=== PATIENT | male | born 1985 | race Caucasian/White ===

== ENCOUNTER 2024-02-08 22:25 | Emergency (ER) | payer SELFPAY ==
[2024-02-08 22:31] VITALS: BP 161/104; PULSE 88; TEMP 37.3; O2SAT 97; BMI 37.9
--- NOTE | 2024-02-08 22:39 | ED_ITS ---
HPI - Ear Problem General Chief complaint: Ear Stated complaint: EAR INFECTION Time Seen by Provider: 02/08/24 22:31 Source: patient Mode of arrival: walk-in Limitations: no limitations History of Present Illness HPI Narrative: ear infection past couple of months. Has taken girlfriends medication . Increasing pain since last PM. No headache or vomiting. No dizziness Related Data Allergies Allergy/AdvReac Type Severity Reaction Status Date / Time No Known Drug Allergies Allergy Verified 02/08/24 22:31 Review of Systems ROS Status of ROS 10 or more systems reviewed and unremark able except as noted in history and below Exam Constitutional Vital Signs, click to edit/add: Last Vital Signs Temp 99.1 F 02/08/24 22:31 Pulse 88 02/08/24 22:31 Resp 18 02/08/24 22:31 BP 161/104 H 02/08/24 22:31 Pulse Ox 97 02/08/24 22:31 O2 Del Method Room Air 02/08/24 22:31 Common normals: no apparent distress, average body habitus, oriented x3, no limitations, healthy appearing, alert and well nourished [facility] Common normals: normocephalic and head/scalp atraumatic Other: swelling external ear canal preventing inspection of canal or TM. sl drainage. No obvious erythema Eye Common normals: EOMs intact bilaterally and conjunctivae normal Respiratory Common normals: normal respiratory effort, no retractions, no use of accessory muscles and clear to auscultation bilaterally Cardio Common normals: regular rate, regular rhythm, S1 normal heart sound and S2 normal heart sound GI Common normals: Normal to inspection, nondistended, normoactive bowel sounds present and soft to palpation Extremity Common normals: normal to inspection and full ROM Neuro Common normals: oriented x3, CN's II-XII intact bilaterally, moves all extremities and no focal motor deficits Psych Appearance: grossly normal Course Vital Signs Vital signs: Vital Signs Temperature 99.1 F 02/08/24 22:31 Pulse Rate 88 02/08/24 22:31 Respiratory Rate 18 02/08/24 22:31 Blood Pressure 161/104 H 02/08/24 22:31 Pulse Oximetry 97 02/08/24 22:31 Oxygen Delivery Method Room Air 02/08/24 22:31 Temperature 99.1 F 02/08/24 22:31 Pulse Rate 88 02/08/24 22:31 Respiratory Rate 18 02/08/24 22:31 Blood Pressure 161/104 H 02/08/24 22:31 Pulse Oximetry 97 02/08/24 22:31 Oxygen Delivery Method Room Air 02/08/24 22:31 Medical Decision Making MDM Narrative Medical decision making narrative: patient presents with cellulitis and right external canal infection right ear. No neuro complaints. augmentin and cortisporin ear drops ordered. Patient instructed to have ear rechecked Discharge Plan Discharge Stand Alone Forms: Portal Instructions Chief Complaint: Ear Clinical Impression: Otitis externa, Cellulitis of right ear canal Patient Disposition: Home, Self-Care Print Language: Divehi Instructions: Cellulitis (ED), Swimmer's Ear (ED) Additional Instructions: have ear rechecked in 2-4 days Referrals: Physician,Non-Staff, MD [Primary Care Provider] - 1 week
[2024-02-08] MEDS: AMOXICILLIN/POTASSIUM CLAV 1 TAB TABLET PO (23:00)
[2024-02-08] MEDS: NEOMYCIN/POLYMYXIN B/HYDROCORTISONE OTIC SOLUTION 200 DROP/10 ML BOTTLE 3 ML OT (23:00)
[2024-02-08 23:08] VITALS: BP 172/99
== END 2024-02-08 23:10 | disposition home or self-care (01) ==
PROVIDERS: Emergency Provider Internal Medicine
DX: H60.11 Cellulitis of right external ear (principal)
CPT/HCPCS: 99284